=== PATIENT | female | born 1975 | race Caucasian/White ===

== ENCOUNTER → 2019-11-13 | Outpatient (CLI) | payer BC ==
--- NOTE | 2019-11-13 12:28 | Diagnostic Imaging Report ---
PROCEDURE: US Non-ob pelvis comp/trans. TECHNIQUE: Multiple realtime grayscale images were obtained of the pelvis in various projections endovaginally. Transabdominal imaging was also performed. INDICATION: Uterine enlargement and pelvic pain Transabdominal and transvaginal ultrasonography of the pelvis are performed. There is no previous study for comparison. The uterus is retroverted measuring 9.6 x 6.7 x 7.2 cm with heterogeneous myometrial echogenicity compatible with diffuse fibroid change. Multiple focal fibroid lesions measure up to 2.5 cm in diameter. Endometrial thickness is mildly prominent at 0.9 cm. There is blood flow to both ovaries without evidence of adnexal region mass or pelvic free fluid. IMPRESSION: Findings are compatible with diffuse fibroid change throughout the uterus. Dictated by: Dictated on workstation # [id number]
--- NOTE | 2019-11-13 12:45 | Diagnostic Imaging Report ---
INDICATION: Screening. EXAMINATION: Digital screening with CAD. COMPARISON: This is a baseline exam. FINDINGS: Bilateral breast implants are present. The [place] parenchymal pattern is moderately dense. No mass, architectural distortion, or suspicious calcifications. IMPRESSION: Benign post surgical findings. No evidence for neoplasm. ACR BI-RADS Category 2: Benign findings. Result letter will be mailed to the patient. Note: At least 10% of breast cancer is not imaged by mammography. Dictated by: Dictated on workstation # [id number]
== END ==
LOC: RAD 09:24
PROVIDERS: ATTEND Obstetrics & Gynecology
DX: Z12.31 Encounter for screening mammogram for malignant neoplasm of breast (principal); R10.2 Pelvic and perineal pain; Z87.42 Personal history of other diseases of the female genital tract
CPT/HCPCS: 76830; 76856; 77063; 77067

== ENCOUNTER 2021-04-08 05:40 | Outpatient (CLI) | payer BC ==
[~2021-04-08] VITALS: Ht 167.7 cm; Wt 66.7 kg
[2021-04-08] MEDS ORDERED: FLUT9.9S NS (10:51)
[2021-04-08] MEDS ORDERED: CETI10TA49 PO (10:51)
[2021-04-08] MEDS ORDERED: MELA1TAB16 PO (13:58)
== END 2021-04-08 14:11 | disposition home or self-care (01) ==
LOC: PREOP 05:40
PROVIDERS: ATTEND Obstetrics & Gynecology
DX: Z01.818 Encounter for other preprocedural examination (principal)

== ENCOUNTER 2021-04-15 09:56 | Day surgery (SDC) | payer BC ==
[~2021-04-15] VITALS: Ht 167.7 cm; Wt 66.7 kg
[2021-04-15] VITALS (11 sets, daily range): BP systolic 109–140; BP diastolic 59–81
[~2021-04-15 09:56] MED LIST: CETI10TA49 PO; FLUT9.9S NS; MELA1TAB16 PO
[2021-04-15 10:17] LABS: CLARITY,URINE CLEAR; COLOR,URINE YELLOW; GLUCOSE, URINE (UA) NEGATIVE (NEGATIVE); KETONES,URINE 2+ (NEGATIVE); LEUKOCYTE ESTERASE ,URINE 3+ (NEGATIVE); NITRITE,URINE NEGATIVE (NEGATIVE); PH,URINE 6.5 (5-9); PROTEIN,URINE NEGATIVE (NEGATIVE)
[2021-04-15 10:26] LABS: BACTERIA,URINE MODERATE /HPF; BILIRUBIN,URINE 1+ (NEGATIVE)
[2021-04-15] MEDS ORDERED: FLU QUADRIvalent (3YOA+) 60 mcg/0.5 ml 2021-22(AFLURIA) IM ONE (10:30)
[2021-04-15] MEDS ORDERED: LIDOCAINE/EPI 1%-1:100,000 (XYLOCAINE) 20ML ONE (10:36)
[2021-04-15] MEDS ORDERED: GLYCOPYRROLATE 0.2 MG/ML (ROBINUL) 2 ML VIAL ONE (10:41)
[2021-04-15] MEDS ORDERED: NEOSTIGMINE 3 MG/3 ML VIAL ONE (10:41)
[2021-04-15] MEDS ORDERED: ONDANSETRON 4 MG/2 ML (SDV) Z0FRAN ONE ×2 (10:41→11:00)
[2021-04-15] MEDS ORDERED: fentaNYL INJ 100 MCG/2 ML AMP ONE (10:41)
[2021-04-15] MEDS ORDERED: MIDAZOLAM 2 MG/2 ML (VERSED) VIAL ONE (10:41)
[2021-04-15] MEDS ORDERED: proPOfol 200 MG/20 ML (DIPRIVAN) VIAL IV ONE ×2 (10:41→12:54)
[2021-04-15] MEDS ORDERED: LIDOCAINE PF 2% 5 ML (XYLOCAINE) VIAL ONE (10:41)
[2021-04-15] MEDS ORDERED: ROCURONIUM 10 MG/ML 5 ML SYRINGE IV ONE ×2 (10:41→12:17)
[2021-04-15] MEDS ORDERED: FAMOTIDINE 20MG/2ML IV (PEPCID) IV ONE (11:00)
[2021-04-15] MEDS ORDERED: ONDANSETRON 4 MG/2 ML (SDV) Z0FRAN IV ONE (11:00)
[2021-04-15] MEDS ORDERED: SCOPOLAMINE 1.5 MG (TRANSDERM-SCOP) PATCH TOP ONE (11:00)
[2021-04-15] MEDS ORDERED: FAMOTIDINE 20MG/2ML IV (PEPCID) ONE (11:00)
[2021-04-15] MEDS ORDERED: SCOPOLAMINE 1.5 MG (TRANSDERM-SCOP) PATCH ONE (11:00)
[2021-04-15] MEDS ORDERED: ceFAZolin 2 GM IV Premixed 50 ML ONE (11:01)
[2021-04-15] MEDS ORDERED: PROPOFOL INJECTION 50 ML IV ONE ×3 (11:02→12:02)
[2021-04-15 11:04] LABS: BASOPHILS # (AUTO) 0.1 10^3/uL (0.0-0.1); BASOPHILS % (AUTO) 1 % (0-10); EOSINOPHILS # (AUTO) 0.1 10^3/uL (0.0-0.3); EOSINOPHILS % (AUTO) 1 % (0-10); HEMATOCRIT 45 % (35-52); HEMOGLOBIN 14.7 g/dL (11.5-16.0); LYMPHOCYTES # (AUTO) 1.5 10^3/uL (1.0-4.0); LYMPHOCYTES % (AUTO) 19 % (12-44); MEAN CORPUSCULAR HEMOGLOBIN 33 pg (25-34); MEAN CORPUSCULAR HGB CONC 33 g/dL (32-36); MEAN CORPUSCULAR VOLUME 100 fL (80-99); MEAN PLATELET VOLUME 9.8 fL (9.0-12.2); MONOCYTES # (AUTO) 0.4 10^3/uL (0.0-1.0); MONOCYTES % (AUTO) 5 % (0-12); NEUTROPHILS # (AUTO) 5.7 10^3/uL (1.8-7.8); NEUTROPHILS % (AUTO) 73 % (42-75); PLATELET COUNT 226 10^3/uL (130-400); WHITE BLOOD COUNT 7.7 10^3/uL (4.3-11.0)
[2021-04-15] MEDS: LACTATED RINGERS 1,000 ML IV PRN ×3 (11:05→13:53)
[2021-04-15] MEDS ORDERED: HYDROmorphone 2 MG/ML VIAL (DILAUDID) IV ONE (11:15)
[2021-04-15] MEDS ORDERED: ceFAZolin 2 GM IV Premixed 50 ML IV ONE (11:15)
[2021-04-15] MEDS ORDERED: morphine INJ 10 MG/ML 1ML (SYR OR VIAL) IVP ONE (11:15)
[2021-04-15] MEDS ORDERED: PROMETHAZINE INJ 25 MG/ML (PHENERGAN) AMP IVP ONE (11:15)
[2021-04-15] MEDS ORDERED: ONDANSETRON 4 MG/2 ML (SDV) Z0FRAN IVP PRN (11:15)
[2021-04-15] MEDS ORDERED: CLINDAMYCIN 600 MG/50 ML IVPB 50 ML IV ONE ×2 (11:21→12:00)
[2021-04-15] MEDS ORDERED: HYDROmorphone 2 MG/ML VIAL (DILAUDID) ONE ×2 (12:03→13:31)
--- NOTE | 2021-04-15 13:02 | Operative Report ---
Operative Report Date of Procedure/Surgery Apr 15, 2021 Surgeon (s) MAX BARR DO Business Services Sales Agent (s): na Post-Operative Diagnosis UTERINE FIBROIDS ABNORMAL UTERINE BLEEDING Procedure Performed RATH, BILATERAL SALPINGECTOMY > 250 GRAMS, myomectomy Description of Procedure Anesthesia Type: General Estimated blood loss (mL): MINIMAL Specimen(s) collected/removed UTERUS TUBES OVARIES 347 GRAMS Description of the Procedure After informed consent was obtained, patient was taken into the operating room where general anesthetic was found to be adequate. She was prepped and draped in the usual sterile fashion in the dorsal lithotomy position. A Fagan catheter was placed. A speculum was placed in the vagina. The cervix was visualized and the anterior lip was grasped with a sharp toothed tenaculum. The uterus was sounded and depth was approximately 12 centimeters. I placed the Ruth device (12 cm) and a 3.5 cm collar was advanced over the cervix. I inserted the Ruth without difficulty, inflating the balloon and securing it around the fornix of the cervix. The collar was then secured with sutures at 12 o'clock. Attention was then turned to the patient's abdomen. A supraumbilical incision was made about 8 mm. A Veress needle was inserted and I confirmed intraabdominal placement with a drop in pressure and the saline drop test. The opening pressure was 6 mmHg. I then insufflated the abdomen to a maximum of 15 mmHg with warmed CO2 gas. I placed an additional 8 mm trocar in the left abdomen lateral to the umbilicus approximately 15 cm. The second robotic port was placed about 12 cm lateral to the right placement. This was an 8 mm trocar. These were placed under direct visualization of the laparoscope. 0.50% Marcaine was injected prior to placement of all trocars. When all placements were confirmed, the patient was placed in steep Trendelenburg allowing adequate visualization. The robot was now brought in for docking and docking was accomplished without difficulty. I then took over the command of the robot utilizing the Synchroseal and monopolar cholo. I did a bilateral salpingectomy by incising the mesosalpinx and using the Synchroseal. I then clamped the uterus at the cornu clamping the uterine ovarian ligament. I sealed this with the Synchroseal and then excised. Then, I was able to visualize the round ligaments bilaterally and grasped them and cauterized with bipolar cautery and then cut with my cholo. I then moved my dissection to the posterior leaves of the broad ligament. I dissected the posterior leaves of the broad ligament off the uterine arteries skeletonizing them bilaterally. I then took a second clamp with the bipolar cautery and with the cholo, transected the vessels away from the lateral aspect to the cervical stroma. I dissected the anterior peritoneum off the lower uterine segment. I continually pushed the bladder back and I took excessively great care and I was eventually able to dissect the vesicouterine peritoneum off the lower uterine segment. I then dissected in a V fashion towards the midline between the uterosacral ligaments. This allowed me to skeletonize the uterine vessels bilaterally. The balloon on the RUTH was insufflated. This allowed me to see the RUTH circumferentially. I then performed a colpotomy anteriorly and then amputate with cervix away from the vaginal fornix. I then continued the colpotomy circumferentially. Once this was performed, the prosthetics assistant attempted to remove the uterus, tubes through the vagina. however, due to a large bulky lateral anterior fibroid, I could not do this easily. So I then used the bipolar forceps and cholo and performed a myomectomy. Once this was done, the fibroid was removed throught the vagina and then uterus, and tubes. She then left a sponge in the vagina to maintain the pneumoperitoneum. . I then began closure of the vaginal cuff. The uterus was left in the vagina to maintain pneumoperitoneum. I closed the apices of the vaginal cuff with 2-0 Vicryl V lock sutures with a colposuspension through the uterosacral ligaments. This suspended the apices of the vaginal cuff. I extended this to the midline from both sides and overlapped the V lock sutures in the midline. Excellent closure is noted and hemostasis is achieved. All the needles were removed from the patient's abdomen. Now, the robotic instruments were removed and the robot was docked back to laparoscopy. The pelvis was irrigated. There was no active bleeding noted. Bilateral ureters were seen the entire time during the surgery and were peristalsing. There was no excessive bleeding noted. The trocars were removed under direct visualization. The laparoscopic sites were visualized and found to be hemostatic. The trocar sites were injected with 0.5% Marcaine. The skin incisions were closed with 4-0 Monocryl in a subcuti cular fashion and then with Dermabond. Op sites were placed over the incision sites. The instruments were removed from the vagina and there were no abrasions. Sponge, lap, needle and instrument counts correct times two. Patient was awakened and taken to recovery in a stable condition. Findings of the Procedure IRREGULAR, BOGGY UTERUS, MULTIPLE FIBROIDS NORMAL TUBES AND OVARIES Allergies and Home Medications Allergies Coded Allergies: cephalexin (Verified Allergy, Intermediate, Rash, 04/15/21) Patient Home Medication List Home Medication List Reviewed: Yes Acetaminophen (Acetaminophen) 500 Mg Tablet, 1,000 MG PO Q8HR Prescribed by: MAX BARR on 04/15/21 1309 Cetirizine HCl (Zyrtec) 10 Mg Tablet, 10 MG PO DAILY, (Reported) Entered as Reported by: GEMMA PRABHAKAR on 04/08/21 1051 Last Action: Reviewed Docusate Sodium (Docusate Sodium) 100 Mg Capsule, 100 MG PO BID Prescribed by: MAX BARR on 04/15/21 1309 Fluticasone Propionate (Flonase Allergy Relief) 9.9 Ml [place].susp, 2 SPRAY NS DAILY, (Reported) Entered as Reported by: GEMMA PRABHAKAR on 04/08/21 1051 Last Action: Reviewed Ibuprofen (Ibu) 600 Mg Tablet, 600 MG PO Q6HR Prescribed by: MAX BARR on 04/15/21 1309 Melatonin/Pyridoxine HCl (B6) (Melatonin 5 mg Tablet) 1 Each Tablet, 1 EACH PO HS PRN for SLEEP, (Reported) Entered as Reported by: GEMMA PRABHAKAR on 04/08/21 1358 Last Action: Reviewed Oxycodone Hcl (Oxyir Tablet) 5 Mg Tab, 5 MG PO Q4HR PRN for PAIN-SEE DOSE INSTRUCTIONS Prescribed by: MAX BARR on 04/15/21 1310 Sennosides/Docusate Sodium (Stool Softener-Laxative Tablet) 1 Each Tablet, 2 EA PO HS Prescribed by: MAX BARR on 04/15/21 1309 MAX BARR DO Apr 15, 2021 13:02
[2021-04-15] MEDS ORDERED: SENN1TAB76 PO (13:09)
[2021-04-15] MEDS ORDERED: IBUP-844 PO (13:09)
[2021-04-15] MEDS ORDERED: ACET-93 PO (13:09)
[2021-04-15] MEDS ORDERED: DOCU100C37 PO (13:09)
[2021-04-15] MEDS ORDERED: OXC5T PO (13:09)
--- NOTE | 2021-04-15 13:12 | Discharge Inst-Women's Service ---
Discharge Inst-Women's Serv Depart Medication/Instructions New, Converted or Re-Newed RX: RX on Chart Instructions expect light bleeding/spotting for up to two weeks Final Diagnosis uterine fibroids abnormal uterine bleeding Problems Reviewed?: Yes Consults/Follow Up Additional Follow Up: Yes (1-2 weeks and 8-10 weeks (incision check and pelvic exam)) Activity Activity: Activity as Tolerated Driving Instructions: No Driving for 1 Week (5 days) NO SMOKING: NO SMOKING Nothing Inside Vagina: No Douching, No [place] (until cleared), No Tampons Other Activity no bathing/hot tubbing/swimming/soaking, etc Diet Discharge Diet: No Restrictions Symptoms to Report to : Swelling Increased, Bleeding Excessive, Pain Increased, Fever Over 101 Degrees F, Vaginal Bleeding Increase, Cramps in Feet or Legs, Vaginal Discharge Foul For Any Problems or Questions: Contact Your Physician Skin/Wound Care Infection Signs and Symptoms: Increased Redness, Foul Odor of Wound, Increased Drainage, Skin Itchy or Has a Rash, Increased Swelling, Temperature Above 101 F Operative Area Clean and Dry: You May Remove Bandage (remove on day three or if soiled or wet) Stitches/Gratis/Dermabond: Dermabond Bathing Instructions: MAX Buckley DO Apr 15, 2021 13:12
[2021-04-15] MEDS ORDERED: ONDANSETRON 4 MG (ZOFRAN) ORAL DISSOLVE TAB PO PRN (13:15)
[2021-04-15] MEDS ORDERED: LACTATED RINGERS 1,000 ML IV SCH (13:15)
[2021-04-15] MEDS ORDERED: SIMETHICONE 80 MG (MYLICON) CHEW PO PRN (13:15)
[2021-04-15] MEDS ORDERED: PROMETHAZINE INJ 25 MG/ML (PHENERGAN) AMP ONE (13:15)
[2021-04-15] MEDS ORDERED: CHLORASEPTIC LOZENGE MM PRN (13:15)
[2021-04-15] MEDS ORDERED: NALOXONE 0.4 MG/ML 1 ML (NARCAN) VIAL IV PRN (13:15)
[2021-04-15] MEDS ORDERED: morphine INJ 4 MG/ML 1 ML (VIAL/SYRINGE) IV PRN (13:15)
[2021-04-15] MEDS ORDERED: ACETAMINOPHEN 500 MG TAB (TYLENOL) PO SCH ×3 (13:30→17:00)
[2021-04-15] MEDS ORDERED: KETOROLAC 30 MG/ML VIAL IV SCH ×2 (15:00→18:00)
[2021-04-15] MEDS ORDERED: traZODone 50 MG (DESYREL) TAB PO SCH (21:00)
[2021-04-15] MEDS ORDERED: DOCUSATE SODIUM 100 MG (COLACE) CAP PO SCH (21:00)
[2021-04-15] MEDS ORDERED: SENNA W/DOCUSATE (SENOKOT S) TABLET PO SCH (21:00)
--- NOTE | 2021-04-16 14:07 | Anesthesia-General Post-Op ---
General Post Op Complications Complications None Follow Up Care/Instructions Patient Instructions None needed. Anesthesia/Patient Condition Patient Condition Pt. discharged, chart reviewed no apparent adverse anesthesia problems. OZ,TRISTON Mcclendon CRNA Apr 16, 2021 14:07
[2021-04-16] MEDS ORDERED: IBUPROFEN 600 MG (MOTRIN) TAB PO SCH (18:00)
== END 2021-04-15 18:25 | disposition home or self-care (01) ==
LOC: SDC 09:56 → WS 14:10 → SDC 18:25
PROVIDERS: ATTEND Obstetrics & Gynecology
DX: D25.1 Intramural leiomyoma of uterus (principal); D25.2 Subserosal leiomyoma of uterus; N72 Inflammatory disease of cervix uteri; N80.0 Endometriosis of uterus; N94.89 Other specified conditions associated with female genital organs and menstrual cycle; N83.8 Other noninflammatory disorders of ovary, fallopian tube and broad ligament; Z79.899 Other long term (current) drug therapy; Z79.1 Long term (current) use of non-steroidal anti-inflammatories (NSAID); Z79.891 Long term (current) use of opiate analgesic; Z98.890 Other specified postprocedural states
CPT/HCPCS: 36415; 81000; 84703; 85025; 86850; 86900; 86901; 87081; 87088; 88307

== ENCOUNTER → 2021-08-29 | Outpatient (CLI) | payer BC ==
[~2021-08-29] MED LIST changes: +ACET-93 PO; +CATHETER FLUSH 10 ML SYR IV PRN; +DOCU100C37 PO; +IBUP-844 PO; +OXC5T PO; +SENN1TAB76 PO
--- NOTE | 2021-08-29 15:58 | Diagnostic Imaging Report ---
RADIOPHARMACEUTICAL: 5.08 mCi Tc-99m Choletec IV. INDICATION: Nausea, vomiting. COMPARISON: None available. TECHNIQUE: Anterior dynamic imaging for 45 minutes. An additional 45 minutes of imaging was performed after the patient ingested an 8 ounce can of Ensure Plus. FINDINGS: There is homogenous uptake throughout the liver. The gallbladder is visualized at 15 minutes and small bowel at 50 minutes. After the patient ingested an 8 ounce can of Ensure, the gallbladder ejection fraction is calculated to be 97%. The patient did not experience abdominal pain during the examination. IMPRESSION: 1. Normal HIDA Scan without evidence of cystic or common duct obstruction. 2. Normal GBEF of 97%. 3. The patient did not experience pain during the examination. Dictated by: Dictated on workstation # [id number]
== END ==
LOC: CARD 12:00
PROVIDERS: ATTEND Family Medicine
DX: K21.9 Gastro-esophageal reflux disease without esophagitis (principal); R63.4 Abnormal weight loss
CPT/HCPCS: 78227; A9537

== ENCOUNTER → 2021-10-14 | Outpatient (CLI) | payer BC ==
[~2021-10-14] MED LIST changes: -CATHETER FLUSH 10 ML SYR IV PRN
--- NOTE | 2021-10-14 14:11 | Diagnostic Imaging Report ---
GASTRIC EMPTYING TIME SCAN Technique: Anterior and posterior planar scintigraphic images of the stomach were obtained after the patient ingested 0.96 mCi of technetium 99m sulfur collate mixed with eggs. Indication: Weight loss and vomiting Comparison: None available. Findings: A time activity curve was calculated for the stomach with the following values of retained activity in the stomach post ingestion: 1 hour: 49% (delayed if greater than 90% retained) 2 hour: 16% (delayed if greater than 60% retained) 3 hour: 11% (delayed if greater than 30% retained) 4 hour: 4% (delayed if greater than 10%) The half-time (T1/2) for gastric emptying was 106 minutes, which is normal. Impression:No gastroparesis. Dictated by: Dictated on workstation # [id number]
== END ==
LOC: CARD 09:00
PROVIDERS: ATTEND Family Medicine
DX: R11.15 Cyclical vomiting syndrome unrelated to migraine (principal); R63.4 Abnormal weight loss
CPT/HCPCS: 78264; A9541